=== PATIENT | female | born 1965 | race American Indian/Alaskan Native ===

== ENCOUNTER 2018-05-28 11:52 | Inpatient (IN) | payer MEDICARE, OTHER ==
--- NOTE | 2018-05-28 12:06 | Emergency Department Report ---
ED Neuro Deficit HPI - General Stated Complaint: POSS CVA Time Seen by Provider: 05/28/18 12:00 Source: patient, EMS - History of Present Illness Initial Comments: Patient is 53 years old female with history of stroke and right side STROKE in 2003, no residual. Also history of hypertension, diabetes and congestive heart failure and atrial fibrillation. Patient is on warfarin. Patient brought into the ER via EMS as a code stroke. EMS stated that patient's symptoms started 11: 30 AM with left sided upper and lower extremity weakness. -: Sudden Time: 11:30 Location: speech, left arm, left leg Presenting Symptoms: Present: Weak/Paralyzed One Side History of same: Yes Place: home Associated Symptoms: denies other symptoms - Related Data Home Medications: Home Medications Medication Instructions Recorded Confirmed Last Taken Aspirin EC [Aspirin Enteric Coated 81 mg PO ONCE 04/27/14 06/03/14 Unknown TAB] Digoxin 125 mcg PO DAILY 04/27/14 06/03/14 Unknown Ferrous Sulfate [Iron Supplement 325 mg PO DAILY 04/27/14 06/03/14 Unknown 325 Mg tab] Metoprolol [Lopressor TAB] 100 mg PO BID 04/27/14 06/03/14 Unknown Nortriptyline HCl 25 mg PO HS 04/27/14 06/03/14 Unknown Pravastatin Sodium [Pravastatin] 40 mg PO QHS 04/27/14 06/03/14 Unknown Pregabalin [Lyrica] 25 mg PO BID 04/27/14 06/03/14 Unknown Warfarin Sodium [Coumadin] 7.5 mg PO DAILY 04/27/14 06/03/14 Unknown metFORMIN [Glucophage] 1,000 mg PO BID 04/27/14 06/03/14 Unknown sulfaSALAzine EC (NF) 1,000 mg PO BID 04/27/14 06/03/14 Unknown [sulfaSALAzine EC (Nf)] Lansoprazole [Prevacid] 30 mg PO DAILY 06/03/14 06/03/14 Unknown Metoclopramide HCl [Reglan TAB] 5 mg PO QID 06/03/14 06/03/14 Unknown Allergies/Adverse Reactions: Allergies Allergy/AdvReac Type Severity Reaction Status Date / Time No Known Allergies Allergy Verified 10/18/13 15:48 ED Review of Systems ROS: Stated complaint: POSS CVA Other details as noted in HPI Comment: All other systems reviewed and negative Constitutional: denies: chills, fever Respiratory: denies: cough, shortness of breath, SOB with exertion, wheezing Cardiovascular: denies: chest pain, palpitations, dyspnea on exertion Gastrointestinal: denies: abdominal pain, nausea, vomiting Genitourinary: denies: dysuria ED Past Medical Hx - Past Medical History Hx Hypertension: Yes Hx CVA: Yes (2003) Hx Congestive Heart Failure: Yes Hx Diabetes: Yes Hx Arthritis: Yes Hx Asthma: No Hx COPD: No Additional medical history: cholesterol. fibromyalgia. mvr. sjogren's syndrome - Surgical History Hx Open Heart Surgery: Yes (x2 (last one in Oct)) Hx Cholecystectomy: Yes Additional Surgical History: Mitral valve repair last month - Social History Smoking Status: Never Smoker - Medications Home Medications: Home Medications Medication Instructions Recorded Confirmed Last Taken Type Aspirin EC [Aspirin Enteric Coated 81 mg PO ONCE 04/27/14 06/03/14 Unknown History TAB] Digoxin 125 mcg PO DAILY 04/27/14 06/03/14 Unknown History Ferrous Sulfate [Iron Supplement 325 mg PO DAILY 04/27/14 06/03/14 Unknown History 325 Mg tab] Metoprolol [Lopressor TAB] 100 mg PO BID 04/27/14 06/03/14 Unknown History Nortriptyline HCl 25 mg PO HS 04/27/14 06/03/14 Unknown History Pravastatin Sodium [Pravastatin] 40 mg PO QHS 04/27/14 06/03/14 Unknown History Pregabalin [Lyrica] 25 mg PO BID 04/27/14 06/03/14 Unknown History Warfarin Sodium [Coumadin] 7.5 mg PO DAILY 04/27/14 06/03/14 Unknown History metFORMIN [Glucophage] 1,000 mg PO BID 04/27/14 06/03/14 Unknown History sulfaSALAzine EC (NF) 1,000 mg PO BID 04/27/14 06/03/14 Unknown History [sulfaSALAzine EC (Nf)] Lansoprazole [Prevacid] 30 mg PO DAILY 06/03/14 06/03/14 Unknown History Metoclopramide HCl [Reglan TAB] 5 mg PO QID 06/03/14 06/03/14 Unknown History ED Neuro Physical Exam - General Limitations: No Limitations General appearance: alert, in no apparent distress Suspected Stroke: Yes - Head Head exam: Present: atraumatic, normocephalic, normal inspection - Eye Eye exam: Present: normal appearance, PERRL - ENT ENT exam: Present: normal exam, normal orophraynx, mucous membranes moist - Neck Neck exam: Present: normal inspection, full ROM. Absent: tenderness, meningismus, lymphadenopathy, thyromegaly - Respiratory Respiratory exam: Present: normal lung sounds bilaterally. Absent: respiratory distress, wheezes, rales, rhonchi, chest wall tenderness, accessory muscle use, decreased breath sounds - Cardiovascular Cardiovascular Exam: Present: regular rate, normal rhythm, normal heart sounds - GI/Abdominal GI/Abdominal exam: Present: soft, normal bowel sounds. Absent: distended, tenderness, guarding, rebound, rigid, organomegaly, mass, bruit, pulsatile mass - Extremities Exam Extremities exam: Present: normal inspection, full ROM, normal capillary refill - Back Exam Back exam: Present: normal inspection, full ROM. Absent: CVA tenderness (R), CVA tenderness (L), muscle spasm, paraspinal tenderness - Neurological Exam Neurological exam: Present: alert, oriented X3 - NIHSS Assessment Interval: Baseline 1a. Level of Consciousness: alert/keenly responsive 1b. LOC Questions: answers both correctly 1c. LOC Commands: performs tasks correctly 2. Best Gaze: normal 3. Visual: no visual loss 4. Facial Palsy: minor paralysis 5b. Motor Arm Right: no drift 5a. Motor Arm Left: drift 6a. Motor Leg Left: drift 6b. Motor Leg Right: no drift 7. Limb Ataxia: absent 8. Sensory: normal 9. Best Language: no aphasia 10. Dysarthria: normal 11. Extinction/Inattention: no abnormality Total Score: 3 Stroke Severity: Minor Stroke ED Course Vital Signs 05/28/18 05/28/18 05/28/18 11:55 12:12 12:38 Temperature 97.8 F Pulse Rate 67 70 Respiratory 18 Rate Blood Pressure 163/94 Blood Pressure 147/78 [Left] O2 Sat by Pulse 100 100 Oximetry - Reevaluation(s) Reevaluation #1: 05/28/18 12:28 I discussed the patient with Dr. Ivana Cisneros from tele-neurology, Dr. Cisneros is examining the patient. Patient stated that her symptoms are not improving. Reevaluation #2: 05/28/18 13:08 Unable to get a peripheral line on this patient for the CTA neck and head. Left EJ was done by me with a good flush but unfortunately it rupture when contrast was injected. Procedure stopped and patient immediately went back to the room, warm compresses applied. Reevaluation #3: 05/28/18 13:37 Discussed the patient again with Doctor Amelia., Doctor Amelia stated that patient is not a TPA candidate. She advised to do a CTA neck and brain. - EJ/Peripheral Line Neck L Time Out Performed: Yes Indications: nurses unable to establis Skin Cleansed in Sterile Fashion: Yes Size: 18 Dressing Placed: Tegaderm Patient Tolerated Procedure: well, no complications - Lab Data Result diagrams: 05/28/18 12:23 05/28/18 12:23 Lab Results 05/28/18 05/28/18 05/28/18 Range/Units 12:23 12:23 12:23 WBC 2.3 L (4.5-11.0) K/mm3 RBC 4.22 (3.65-5.03) M/mm3 Hgb 12.4 (10.1-14.3) gm/dl Hct 37.4 (30.3-42.9) % MCV 89 (79-97) fl MCH 29 (28-32) pg MCHC 33 (30-34) % RDW 14.8 (13.2-15.2) % Plt Count 188 (140-440) K/mm3 Add Manual Diff Complete Total Counted 100 Seg Neuts % (Manual) 61.0 (40.0-70.0) % Band Neutrophils % 0 % Lymphocytes % (Manual) 28.0 (13.4-35.0) % Reactive Lymphs % (Man) 1.0 % Monocytes % (Manual) 6.0 (0.0-7.3) % Eosinophils % (Manual) 2.0 (0.0-4.3) % Basophils % (Manual) 2.0 H (0.0-1.8) % Metamyelocytes % 0 % Myelocytes % 0 % Promyelocytes % 0 % Blast Cells % 0 % Nucleated RBC % Not Reportable Seg Neutrophils # Man 1.4 L (1.8-7.7) K/mm3 Band Neutrophils # 0.0 K/mm3 Lymphocytes # (Manual) 0.6 L (1.2-5.4) K/mm3 Abs React Lymphs (Man) 0.0 K/mm3 Monocytes # (Manual) 0.1 (0.0-0.8) K/mm3 Eosinophils # (Manual) 0.0 (0.0-0.4) K/mm3 Basophils # (Manual) 0.0 (0.0-0.1) K/mm3 Metamyelocytes # 0.0 K/mm3 Myelocytes # 0.0 K/mm3 Promyelocytes # 0.0 K/mm3 Blast Cells # 0.0 K/mm3 WBC Morphology Not Reportable Hypersegmented Neuts Not Reportable Hyposegmented Neuts Not Reportable Hypogranular Neuts Not Reportable Smudge Cells Not Reportable Toxic Granulation Not Reportable Toxic Vacuolation Not Reportable Dohle Bodies Not Reportable Pelger-Huet Anomaly Not Reportable Gulshan Rods Not Reportable Platelet Estimate Cons Clumped Platelets Not Reportable Plt Clumps, EDTA Not Reportable Large Platelets Not Reportable Giant Platelets Not Reportable Platelet Satelliting Not Reportable Plt Morphology Comment Not Reportable RBC Morphology Not Reportable Dimorphic RBCs Not Reportable Polychromasia Not Reportable Hypochromasia Not Reportable Poikilocytosis Not Reportable Anisocytosis 1+ Microcytosis Not Reportable Macrocytosis Not Reportable Spherocytes Not Reportable Pappenheimer Bodies Not Reportable Sickle Cells Not Reportable Target Cells Not Reportable Tear Drop Cells Not Reportable Ovalocytes Not Reportable Helmet Cells Not Reportable Jacques-[place] Bodies Not Reportable Manlius Rings Not Reportable Juana Cells Not Reportable Bite Cells Not Reportable Crenated Cell Not Reportable Elliptocytes Not Reportable Acanthocytes (Spur) Not Reportable Rouleaux Not Reportable Hemoglobin C Crystals Not Reportable Schistocytes Not Reportable Malaria parasites Not Reportable Alexsander Bodies Not Reportable Hem Pathologist Commnt No PT 26.9 H (12.2-14.9) Sec. INR 2.42 H (0.87-1.13) APTT 38.4 H (24.2-36.6) Sec. Thrombin Time 33.0 H (15.1-19.6) Sec. Sodium 140 (137-145) mmol/L Potassium 3.9 (3.6-5.0) mmol/L Chloride 100.6 (98-107) mmol/L Carbon Dioxide 28 (22-30) mmol/L Anion Gap 15 mmol/L BUN 19 H (7-17) mg/dL Creatinine 1.2 (0.7-1.2) mg/dL Estimated GFR 57 ml/min BUN/Creatinine Ratio 16 % Glucose 139 H (65-100) mg/dL Calcium 9.6 (8.4-10.2) mg/dL Troponin T < 0.010 (0.00-0.029) ng/mL - EKG Data -: EKG Interpreted by Al EKG shows normal: sinus rhythm Rate: normal Interpretation: no acute changes - Radiology Data Radiology results: report reviewed Referring Physician: EL GORDILLO Patient Name: KADEEM GILBERT Date of : 1965 Sex: Female Report Date: 2018-05-28 Report Status: Finalized Findings [facility] [address] [id number] Cat Scan Report Signed Patient: KADEEM GILBERT MR#: [id number] : 1965 Acct:[id number] Age/Sex: 53 / F ADM Date: 05/28/18 Loc: ED Attending Dr: Ordering Physician: EL GORDILLO Date of Service: 05/28/18 Procedure(s): CT head/brain wo con Accession Number(s): [id number] cc: EL GORDILLO CT HEAD WITHOUT CONTRAST: HISTORY: Neurological deficit, stroke. TECHNIQUE: Sequential 2.5mm CT images. COMPARISON: 04/26/14. FINDINGS: Cerebral Parenchyma: Within normal limits. Cerebellum: Within normal limits. Brainstem: Within normal limits. Ventricles: Normal. Sella: Normal. Extra-axial spaces: Normal. Basal Cisterns: Normal. Intracranial Hemorrhage: None. Midline Shift: None. Calvarium: Normal. Sinuses: Normal. Mastoid Air Cells: Normal. Visualized Orbits: Normal. IMPRESSION: Cranial CT scan within normal limits. These findings were discussed with Dr. Gordillo in the emergency department at 1209 hrs. Transcribed By: TTR Dictated By: PASCALE LEA JR, MD Electronically Authenticated By: PASCALE LEA JR, MD Signed Date/Time: 05/28/18 1209 DD/ 1208 TD/TT: 05/28/18 1209 - Medical Decision Making I discussed the patient is Dr. Snell, he agreed to admit the patient to medical service. Critical Care Time: Yes Critical care time in (mins) excluding proc time.: 30 Critical care attestation.: If time is entered above; I have spent that time in minutes in the direct care of this critically ill patient, excluding procedure time. ED Disposition Clinical Impression: Stroke Disposition: - OP ADMIT IP TO THIS HOSP Is pt being admited?: Yes Condition: Stable Referrals: PRIMARY CARE, [Primary Care Provider] - 3-5 Days
--- NOTE | 2018-05-28 12:10 | Cat Scan Report ---
CT HEAD WITHOUT CONTRAST: HISTORY: Neurological deficit, stroke. TECHNIQUE: Sequential 2.5mm CT images. COMPARISON: 04/26/14. FINDINGS: Cerebral Parenchyma: Within normal limits. Cerebellum: Within normal limits. Brainstem: Within normal limits. Ventricles: Normal. Sella: Normal. Extra-axial spaces: Normal. Basal Cisterns: Normal. Intracranial Hemorrhage: None. Midline Shift: None. Calvarium: Normal. Sinuses: Normal. Mastoid Air Cells: Normal. Visualized Orbits: Normal. IMPRESSION: Cranial CT scan within normal limits. These findings were discussed with Dr. Rosas in the emergency department at 1209 hrs.
[2018-05-28 12:48] LABS: Hematocrit 37.4 % (30.3-42.9); Hemoglobin 12.4 gm/dl (10.1-14.3); Mean Corpuscular HGB Conc 33 % (30-34); Mean Corpuscular Hemoglobin 29 pg (28-32); Mean Corpuscular Volume 89 fl (79-97); Platelet Count 188 K/mm3 (140-440); Red Blood Count 4.22 M/mm3 (3.65-5.03); Red Cell Distribution Width 14.8 % (13.2-15.2)
[2018-05-28 13:01] LABS: INR 2.42 (0.87-1.13)
[2018-05-28 13:02] LABS: Partial Thromboplastin Time 38.4 Sec. (24.2-36.6)
[2018-05-28 13:04] LABS: BUN/Creatinine Ratio 16; Blood Urea Nitrogen 19 mg/dL (7-17); Calcium 9.6 mg/dL (8.4-10.2); Hemolysis Index 6
[2018-05-28 13:42] LABS: Total Cells Counted 100
[2018-05-28 13:43] LABS: Anisocytosis 1+; Platelet Estimate Cons
--- NOTE | 2018-05-28 16:33 | Cat Scan Report ---
FINAL REPORT EXAM: CT ANGIO HEAD HISTORY: stroke TECHNIQUE: Spiral CTA of brain after the uneventful administration of IV contrast. Multiplanar reformations. 3D image post-procesessing was performed on an independent work station. 100 mL Omnipaque IV. PRIORS: None. FINDINGS: Normal enhancement of the basilar and bilateral internal carotid arteries and their main intracranial branches. No abnormal aneurysmal dilatation, significant stenosis or apparent occlusion. No parenchymal mass, hemorrhage, midline shift or hydrocephalus. No evidence of acute cortical infarct. No abnormal extra-axial fluid or air collections. No pathologic enhancement. Osseous calvarium grossly intact. IMPRESSION: 1. No acute intracranial findings. 2. Less than 50% stenosis by NASCET criteria.
--- NOTE | 2018-05-28 16:53 | Cat Scan Report ---
FINAL REPORT EXAM: CT ANGIO NECK HISTORY: stroke TECHNIQUE: Spiral CTA of the neck after the uneventful administration of IV contrast. Multiplanar reformations. 3D image post-procesessing was performed on an independent work station. 100 mL Omnipaque IV. PRIORS: None. FINDINGS: Diffuse contrast material noted in the left upper chest wall, supraclavicular region and partially extending cephalad in the neck, around the sternocleidomastoid muscle, carotid space and probable retropharyngeal or prevertebral spaces to the level of oropharynx. Less pronounced extension caudally into the upper mediastinum. Some gas locules or emphysema also noted along same distribution. Associated mass effect, including rightward tracheal deviation. Left-sided cardiac device and probable left subclavian central venous catheter also noted. Extent of contrast extravasation limits evaluation. Normal enhancement of the bilateral CCAs, ICAs and ECAs. No abnormal aneurysmal dilatation, apparent dissection, significant stenosis or occlusion. Vertebral arteries are patent and symmetric. Degenerative change in the cervical spine. IMPRESSION: 1. Extensive contrast extravasation and less pronounced soft tissue emphysema noted within left chest wall, supraclavicular region and neck limiting evaluation and probably secondary to reported contrast extravasation from attempted central line placement in left external jugular vein, as per emergency department note reported by Dr. Snell at time of dictation. Correlate clinically. 2. Less than 50% carotid stenosis by NASCET criteria. Dr. Loo discussed results with Dr. Snell on 28 May 2018 at approximately 1638 hours EST.
--- NOTE | 2018-05-28 21:19 | History and Physical Report ---
History of Present Illness Date of examination: 05/28/18 Date of admission: 05/28/18 15:17 Chief complaint: Chief complaint: Left-sided weakness since11 a.m. History of present illness: History of Present Illness: 53-year-old black female with history of hypertension hyperlipidemia peripheral neuropathy and CVA affecting right side with full recovery comes in for left- sided weakness this time. Patient is on Coumadin. Patient's symptoms started around 11 AM with left-sided upper and lower extremity weakness. She was deemed to be not a TPA candidate as per telemetry neurologists. Patient unable to lift her left upper extremity and left lower extremity. No altered SENSORIUM. No fever no chills. No shortness of breath. Unable to walk. Past Medical History Hx Hypertension: Yes Hx CVA: Yes (2003) with no residual weakness on the right side Hx Congestive Heart Failure: Yes Hx Diabetes: Yes Hx Arthritis: Yes Additional medical history: cholesterol. fibromyalgia. mvr. sjogren's syndrome - Surgical History Hx Open Heart Surgery: Yes (x2 (last one in Oct)) Hx Cholecystectomy: Yes Additional Surgical History: Mitral valve repair last month - Social History Smoking Status: Never Smoker Family history Htn - Medications Home Medications: Home Medications Medication Instructions Recorded Confirmed Last Taken Type Aspirin EC [Aspirin Enteric Coated 81 mg PO ONCE 04/27/14 06/03/14 Unknown History TAB] Digoxin 125 mcg PO DAILY 04/27/14 06/03/14 Unknown History Ferrous Sulfate [Iron Supplement 325 mg PO DAILY 04/27/14 06/03/14 Unknown History 325 Mg tab] Metoprolol [Lopressor TAB] 100 mg PO BID 04/27/14 06/03/14 Unknown History Nortriptyline HCl 25 mg PO HS 04/27/14 06/03/14 Unknown History Pravastatin Sodium [Pravastatin] 40 mg PO QHS 04/27/14 06/03/14 Unknown History Pregabalin [Lyrica] 25 mg PO BID 04/27/14 06/03/14 Unknown History Warfarin Sodium [Coumadin] 7.5 mg PO DAILY 04/27/14 06/03/14 Unknown History metFORMIN [Glucophage] 1,000 mg PO BID 04/27/14 06/03/14 Unknown History sulfaSALAzine EC (NF) 1,000 mg PO BID 04/27/14 06/03/14 Unknown History [sulfaSALAzine EC (Nf)] Lansoprazole [Prevacid] 30 mg PO DAILY 06/03/14 06/03/14 Unknown History Metoclopramide HCl [Reglan TAB] 5 mg PO QID 06/03/14 06/03/14 Unknown History Review of systems ROS: Stated complaint: POSS CVA Other details as noted in HPI Comment: All other systems reviewed and negative Constitutional: denies: chills, fever Respiratory: denies: cough, shortness of breath, SOB with exertion, wheezing Cardiovascular: denies: chest pain, palpitations, dyspnea on exertion Gastrointestinal: denies: abdominal pain, nausea, vomiting Genitourinary: denies: dysuria Medications and Allergies Allergies Allergy/AdvReac Type Severity Reaction Status Date / Time No Known Allergies Allergy Verified 10/18/13 15:48 Home Medications Medication Instructions Recorded Confirmed Last Taken Type Warfarin Sodium [Coumadin] 7.5 mg PO DAILY 04/27/14 05/28/18 05/27/18 History Carvedilol [Coreg] 6.25 mg PO BID 05/28/18 05/28/18 05/27/18 History Ezetimibe [Zetia] 10 mg PO QDAY 05/28/18 05/28/18 05/27/18 History Furosemide [Lasix TAB] 40 mg PO QDAY 05/28/18 05/28/18 05/27/18 History Levothyroxine [Synthroid] 75 mcg PO QAM 05/28/18 05/28/18 05/27/18 History Paricalcitol [Zemplar] 1 mcg PO 3XW 05/28/18 05/28/18 05/27/18 History Pregabalin [Lyrica] 200 mg PO Q12HR 05/28/18 05/28/18 05/27/18 History 200MG Venlafaxine [Effexor] 225 mg PO DAILY 05/28/18 05/28/18 05/27/18 History Active Meds: Active Medications Carvedilol (Coreg) 6.25 mg PO BID RABIA Ezetimibe (Zetia) 10 mg PO QDAY RABIA Furosemide (Lasix) 40 mg PO QDAY RABIA Levothyroxine Sodium (Synthroid) 75 mcg PO QAM RABIA Miscellaneous Medication (Pregabalin [Lyrica]) 200 mg PO Q12HR RABIA Paricalcitol (Zemplar) 1 mcg PO 3XW RABIA Venlafaxine HCl (Effexor) 225 mg PO DAILY RABIA Warfarin Sodium (Coumadin) 7.5 mg PO DAILY RABIA; Protocol Exam - Physical Exam Narrative exam: Lying in bed comfortably - Constitutional Vitals: Temp Pulse Resp BP Pulse Ox 98.6 F 69 18 157/73 98 05/28/18 20:03 05/28/18 20:03 05/28/18 20:03 05/28/18 20:03 05/28/18 20:03 General appearance: Present: no acute distress, well-nourished - EENT Eyes: Present: PERRL ENT: hearing intact, clear oral mucosa - Neck Neck: Present: supple, normal ROM - Respiratory Respiratory effort: normal Respiratory: bilateral: CTA - Cardiovascular Heart rate: 67 Rhythm: regular Heart Sounds: Present: S1 & S2. Absent: rub, click - Extremities Extremities: no ischemia, pulses intact, pulses symmetrical, No edema Peripheral Pulses: within normal limits - Abdominal General gastrointestinal: Present: soft, non-tender, non-distended, normal bowel sounds Female genitourinary: Present: deferred - Integumentary Integumentary: Present: clear, warm, dry - Musculoskeletal Musculoskeletal: left sided weakness - Psychiatric Psychiatric: appropriate mood/affect, intact judgment & insight, memory intact, cooperative - Neurologic Neurologic: CNII-XII intact, focal deficits, other (left upper extremity weakness 3/5 power. Left lower extremity 2/5 power. Reflexes are brisk. No sensory loss. Left facial droop slightly no other cranial nerves involved gait could not be tested.) Results - Labs CBC & Chem 7: 05/28/18 12:23 05/28/18 12:23 Labs: Laboratory Last Values WBC 2.3 K/mm3 (4.5-11.0) L 05/28/18 12:23 RBC 4.22 M/mm3 (3.65-5.03) 05/28/18 12:23 Hgb 12.4 gm/dl (10.1-14.3) 05/28/18 12:23 Hct 37.4 % (30.3-42.9) 05/28/18 12:23 MCV 89 fl (79-97) 05/28/18 12:23 MCH 29 pg (28-32) 05/28/18 12:23 MCHC 33 % (30-34) 05/28/18 12:23 RDW 14.8 % (13.2-15.2) 05/28/18 12:23 Plt Count 188 K/mm3 (140-440) 05/28/18 12:23 Add Manual Diff Complete 05/28/18 12:23 Total Counted 100 05/28/18 12:23 Seg Neuts % (Manual) 61.0 % (40.0-70.0) 05/28/18 12:23 Band Neutrophils % 0 % 05/28/18 12:23 Lymphocytes % (Manual) 28.0 % (13.4-35.0) 05/28/18 12:23 Reactive Lymphs % (Man) 1.0 % 05/28/18 12:23 Monocytes % (Manual) 6.0 % (0.0-7.3) 05/28/18 12:23 Eosinophils % (Manual) 2.0 % (0.0-4.3) 05/28/18 12:23 Basophils % (Manual) 2.0 % (0.0-1.8) H 05/28/18 12:23 Metamyelocytes % 0 % 05/28/18 12:23 Myelocytes % 0 % 05/28/18 12:23 Promyelocytes % 0 % 05/28/18 12:23 Blast Cells % 0 % 05/28/18 12:23 Nucleated RBC % Not Reportable 05/28/18 12:23 Seg Neutrophils # Man 1.4 K/mm3 (1.8-7.7) L 05/28/18 12:23 Band Neutrophils # 0.0 K/mm3 05/28/18 12:23 Lymphocytes # (Manual) 0.6 K/mm3 (1.2-5.4) L 05/28/18 12:23 Abs React Lymphs (Man) 0.0 K/mm3 05/28/18 12:23 Monocytes # (Manual) 0.1 K/mm3 (0.0-0.8) 05/28/18 12:23 Eosinophils # (Manual) 0.0 K/mm3 (0.0-0.4) 05/28/18 12:23 Basophils # (Manual) 0.0 K/mm3 (0.0-0.1) 05/28/18 12:23 Metamyelocytes # 0.0 K/mm3 05/28/18 12:23 Myelocytes # 0.0 K/mm3 05/28/18 12:23 Promyelocytes # 0.0 K/mm3 05/28/18 12:23 Blast Cells # 0.0 K/mm3 05/28/18 12:23 WBC Morphology Not Reportable 05/28/18 12:23 Hypersegmented Neuts Not Reportable 05/28/18 12:23 Hyposegmented Neuts Not Reportable 05/28/18 12:23 Hypogranular Neuts Not Reportable 05/28/18 12:23 Smudge Cells Not Reportable 05/28/18 12:23 Toxic Granulation Not Reportable 05/28/18 12:23 Toxic Vacuolation Not Reportable 05/28/18 12:23 Dohle Bodies Not Reportable 05/28/18 12:23 Pelger-Huet Anomaly Not Reportable 05/28/18 12:23 Gulshan Rods Not Reportable 05/28/18 12:23 Platelet Estimate Cons 05/28/18 12:23 Clumped Platelets Not Reportable 05/28/18 12:23 Plt Clumps, EDTA Not Reportable 05/28/18 12:23 Large Platelets Not Reportable 05/28/18 12:23 Giant Platelets Not Reportable 05/28/18 12:23 Platelet Satelliting Not Reportable 05/28/18 12:23 Plt Morphology Comment Not Reportable 05/28/18 12:23 RBC Morphology Not Reportable 05/28/18 12:23 Dimorphic RBCs Not Reportable 05/28/18 12:23 Polychromasia Not Reportable 05/28/18 12:23 Hypochromasia Not Reportable 05/28/18 12:23 Poikilocytosis Not Reportable 05/28/18 12:23 Anisocytosis 1+ 05/28/18 12:23 Microcytosis Not Reportable 05/28/18 12:23 Macrocytosis Not Reportable 05/28/18 12:23 Spherocytes Not Reportable 05/28/18 12:23 Pappenheimer Bodies Not Reportable 05/28/18 12:23 Sickle Cells Not Reportable 05/28/18 12:23 Target Cells Not Reportable 05/28/18 12:23 Tear Drop Cells Not Reportable 05/28/18 12:23 Ovalocytes Not Reportable 05/28/18 12:23 Helmet Cells Not Reportable 05/28/18 12:23 Jacques-Cecilia Bodies Not Reportable 05/28/18 12:23 [place] Rings Not Reportable 05/28/18 12:23 [place] Cells Not Reportable 05/28/18 12:23 Bite Cells Not Reportable 05/28/18 12:23 Crenated Cell Not Reportable 05/28/18 12:23 Elliptocytes Not Reportable 05/28/18 12:23 Acanthocytes (Spur) Not Reportable 05/28/18 12:23 Rouleaux Not Reportable 05/28/18 12:23 Hemoglobin C Crystals Not Reportable 05/28/18 12:23 Schistocytes Not Reportable 05/28/18 12:23 Malaria parasites Not Reportable 05/28/18 12:23 Alexsander Bodies Not Reportable 05/28/18 12:23 Hem Pathologist Commnt No 05/28/18 12:23 PT 26.9 Sec. (12.2-14.9) H 05/28/18 12:23 INR 2.42 (0.87-1.13) H 05/28/18 12:23 APTT 38.4 Sec. (24.2-36.6) H 05/28/18 12:23 Thrombin Time 33.0 Sec. (15.1-19.6) H 05/28/18 12:23 Sodium 140 mmol/L (137-145) 05/28/18 12:23 Potassium 3.9 mmol/L (3.6-5.0) 05/28/18 12:23 Chloride 100.6 mmol/L (98-107) 05/28/18 12:23 Carbon Dioxide 28 mmol/L (22-30) 05/28/18 12:23 Anion Gap 15 mmol/L 05/28/18 12:23 BUN 19 mg/dL (7-17) H 05/28/18 12:23 Creatinine 1.2 mg/dL (0.7-1.2) 05/28/18 12:23 Estimated GFR 57 ml/min 05/28/18 12:23 BUN/Creatinine Ratio 16 % 05/28/18 12:23 Glucose 139 mg/dL (65-100) H 05/28/18 12:23 Calcium 9.6 mg/dL (8.4-10.2) 05/28/18 12:23 Troponin T < 0.010 ng/mL (0.00-0.029) 05/28/18 12:23 Short CBC 05/28/18 Range/Units 12:23 WBC 2.3 L (4.5-11.0) K/mm3 Hgb 12.4 (10.1-14.3) gm/dl Hct 37.4 (30.3-42.9) % Plt Count 188 (140-440) K/mm3 BMP 05/28/18 12:23 Sodium 140 Potassium 3.9 Chloride 100.6 Carbon Dioxide 28 BUN 19 H Creatinine 1.2 Glucose 139 H Calcium 9.6 Cardiac Enzymes 05/28/18 Range/Units 12:23 Troponin T < 0.010 (0.00-0.029) ng/mL - Imaging and Cardiology EKG: report reviewed (67/m sinus rhythm right bundle branch block and LVH with IVCD and secondary repolarization abnormalities) CT Scan - head: report reviewed (no acute findings) Imaging and Cardiology: Head CTA No acute findings Less than 50% blockage Neck CTA IMPRESSION: 1. Extensive contrast extravasation and less pronounced soft tissue emphysema noted within left chest wall, supraclavicular region and neck limiting evaluation and probably secondary to reported contrast extravasation from attempted central line placement in left external jugular vein, as per emergency department note reported by Dr. Snell at time of dictation. Correlate clinically. 2. Less than 50% carotid stenosis by NASCET criteria. Dr. Loo discussed results with Dr. Snell on 28 May 2018 at approximately 1638 hours EST. Assessment and Plan Advance Directives: Yes (full code) VTE prophylaxis?: Chemical Plan of care discussed with patient/family: Yes - Patient Problems (1) Acute CVA (cerebrovascular accident) Current Visit: Yes Status: Acute Plan to address problem: Patient has left-sided weakness--acute in nature CVA workup CT angiogram negative We'll get MRI/MRA echocardiogram and carotid duplex scan Neurology consult in a.m. Plavix initiated (2) HTN (hypertension) Onset Date: 05/28/13 Current Visit: No Status: Chronic Qualifiers: Hypertension type: essential hypertension Qualified Code(s): I10 - Essential (primary) hypertension Plan to address problem: Continue metoprolol. (3) Type 2 diabetes mellitus Current Visit: Yes Status: Chronic Qualifiers: Diabetes mellitus salvage determiner insulin use: without jail use Plan to address problem: Continue metformin and coverage (4) Hyperlipidemia Current Visit: Yes Status: Chronic Qualifiers: Hyperlipidemia type: mixed hyperlipidemia Qualified Code(s): E78.2 - Mixed hyperlipidemia Plan to address problem: Continue statins (5) Atrial fibrillation Current Visit: Yes Status: Chronic Qualifiers: Atrial fibrillation type: paroxysmal Qualified Code(s): I48.0 - Paroxysmal atrial fibrillation Plan to address problem: Patient on Coumadin Present EKG does not show atrial fibrillation May have paroxysmal atrial fibrillation (6) Peripheral neuropathy Current Visit: Yes Status: Chronic Qualifiers: Peripheral neuropathy type: polyneuropathy, unspecified Qualified Code(s): G62.9 - Polyneuropathy, unspecified Plan to address problem: Continue Lyrica (7) Depression Current Visit: Yes Status: Chronic Qualifiers: Depression Type: unspecified Qualified Code(s): F32.9 - Major depressive disorder, single episode, unspecified Plan to address problem: Continue nortriptyline (8) GERD (gastroesophageal reflux disease) Current Visit: Yes Status: Chronic Qualifiers: Esophagitis presence: without esophagitis Qualified Code(s): K21.9 - Gastro -esophageal reflux disease without esophagitis Plan to address problem: Continue Prevacid and metoclopramide (9) Leukopenia Current Visit: Yes Status: Chronic Qualifiers: Leukopenia type: unspecified Qualified Code(s): D72.819 - Decreased white blood cell count, unspecified Plan to address problem: Will trend the white cell count (10) DVT prophylaxis Current Visit: Yes Status: Acute Plan to address problem: On Lovenox
[2018-05-28] MEDS ORDERED: SODIUM CHLORIDE FLUSH SYRINGE 10 ML IV PRN ×2 (21:42→21:44)
[2018-05-28] MEDS ORDERED: REGLAN IV PRN (21:42)
[2018-05-28] MEDS ORDERED: TYLENOL PO PRN (21:42)
[2018-05-28] MEDS ORDERED: DILAUDID IV PRN (21:42)
[2018-05-28] MEDS ORDERED: MORPHINE IV PRN (21:42)
[2018-05-28] MEDS ORDERED: ZOFRAN IV PRN (21:42)
[2018-05-28] MEDS ORDERED: PERCOCET 5/325 PO PRN (21:42)
[2018-05-28] MEDS ORDERED: EFFEXOR XR PO SCH (22:00)
[2018-05-28] MEDS ORDERED: NON-FORMULARY (Pregabalin [Lyrica] 200 MG) PO SCH (22:00)
[2018-05-28] MEDS ORDERED: SODIUM CHLORIDE FLUSH SYRINGE 10 ML IV SCH (22:00)
[2018-05-28] MEDS ORDERED: COUMADIN PO SCH ×2 (22:00)
[2018-05-28] MEDS ORDERED: EFFEXOR PO SCH (22:00)
[2018-05-28] MEDS: ZETIA PO SCH (22:42)
[2018-05-28] MEDS: COREG PO SCH (22:43)
[2018-05-28] MEDS: EFFEXOR XR PO SCH (22:43)
[2018-05-28] MEDS: LASIX PO SCH (22:44)
[2018-05-28] MEDS: LYRICA PO SCH ×2 (22:44)
[2018-05-28] MEDS: HumaLOG SUB-Q SCH (22:45)
[2018-05-29 05:44] LABS: Basophils % (Auto) 0.7 % (0.0-1.8); Eosinophils # (Auto) 0.1 K/mm3 (0.0-0.4); Eosinophils % (Auto) 4.2 % (0.0-4.3); Hematocrit 36.2 % (30.3-42.9); Hemoglobin 12.3 gm/dl (10.1-14.3); Lymphocytes % (Auto) 44.4 % (13.4-35.0); Mean Corpuscular HGB Conc 34 % (30-34); Mean Corpuscular Hemoglobin 30 pg (28-32); Mean Corpuscular Volume 88 fl (79-97); Monocytes # (Auto) 0.1 K/mm3 (0.0-0.8); Monocytes % (Auto) 6.1 % (0.0-7.3); Platelet Count 197 K/mm3 (140-440); Red Blood Count 4.12 M/mm3 (3.65-5.03); Red Cell Distribution Width 14.9 % (13.2-15.2)
[2018-05-29 05:54] LABS: INR 2.23 (0.87-1.13)
[2018-05-29] MEDS ORDERED: SYNTHROID PO SCH ×2 (06:00→10:00)
[2018-05-29 06:17] LABS: Alanine Aminotransferase 13 units/L (7-56); Albumin 4.5 g/dL (3.9-5); BUN/Creatinine Ratio 14; Blood Urea Nitrogen 14 mg/dL (7-17); Calcium 9.4 mg/dL (8.4-10.2); Chol/HDL Ratio 3.55 %; HDL Cholesterol 79 mg/dL (40-59); Hemolysis Index 6; LDL Cholesterol,Direct 211 mg/dL (50-130)
--- NOTE | 2018-05-29 08:27 | Progress Note ---
Assessment and Plan Assessment and plan: 53-year-old female with past medical history significant for right-sided CVA, A. fib on anticoagulation, hypertension, GERD, systolic CHF, hyperlipidemia presented to the emergency department with complaints of left-sided weakness that resolved spontaneously Acute CVA - CVA workup - Statin - Continue home medications Paroxysmal A. fib - Continue warfarin, INR is therapeutic Systolic CHF - Stable, continue medications GERD - On Protonix Hyperlipidemia - Continue statin DM - OnSSI DVT prophylaxis - Therapeutic INR Disposition - Continue continue inpatient care, Finish CVA workup History Interval history: Patient will seen and evaluated this morning, no focal weakness Hospitalist Physical - Physical exam Narrative exam: Not in cardiopulmonary distress. The patient appeared well nourished and normally developed. Vital signs as documented. Head exam is unremarkable. No scleral icterus . Neck is without jugular venous distension, thyromegaly, or carotid bruits. Lungs are clear to auscultation. Cardiac exam reveals regular rate and Rhythm. First and second heart sounds normal. No murmurs, rubs or gallops. Abdominal exam reveals normal bowel sounds, no masses, no organomegaly and no aortic enlargement. Extremities are nonedematous and both femoral and pedal pulses are normal. REGISTRATION OFFICER: Alert and oriented 3. No focal weakness. - Constitutional Vitals: Temp Pulse Resp BP Pulse Ox 98.0 F 67 16 134/69 97 05/29/18 04:55 05/29/18 04:55 05/29/18 04:55 05/29/18 04:55 05/29/18 04:55 General appearance: Present: no acute distress, well-nourished Results - Labs CBC & Chem 7: 05/29/18 04:58 05/29/18 04:58 Labs: Laboratory Last Values WBC 2.4 K/mm3 (4.5-11.0) L 05/29/18 04:58 RBC 4.12 M/mm3 (3.65-5.03) 05/29/18 04:58 Hgb 12.3 gm/dl (10.1-14.3) 05/29/18 04:58 Hct 36.2 % (30.3-42.9) 05/29/18 04:58 MCV 88 fl (79-97) 05/29/18 04:58 MCH 30 pg (28-32) 05/29/18 04:58 MCHC 34 % (30-34) 05/29/18 04:58 RDW 14.9 % (13.2-15.2) 05/29/18 04:58 Plt Count 197 K/mm3 (140-440) 05/29/18 04:58 Lymph % (Auto) 44.4 % (13.4-35.0) H 05/29/18 04:58 Will % (Auto) 6.1 % (0.0-7.3) 05/29/18 04:58 Eos % (Auto) 4.2 % (0.0-4.3) 05/29/18 04:58 Baso % (Auto) 0.7 % (0.0-1.8) 05/29/18 04:58 Lymph # 1.0 K/mm3 (1.2-5.4) L 05/29/18 04:58 Will # 0.1 K/mm3 (0.0-0.8) 05/29/18 04:58 Eos # 0.1 K/mm3 (0.0-0.4) 05/29/18 04:58 Baso # 0.0 K/mm3 (0.0-0.1) 05/29/18 04:58 Add Manual Diff Complete 05/28/18 12:23 Total Counted 100 05/28/18 12:23 Seg Neutrophils % 44.6 % (40.0-70.0) 05/29/18 04:58 Seg Neuts % (Manual) 61.0 % (40.0-70.0) 05/28/18 12:23 Band Neutrophils % 0 % 05/28/18 12:23 Lymphocytes % (Manual) 28.0 % (13.4-35.0) 05/28/18 12:23 Reactive Lymphs % (Man) 1.0 % 05/28/18 12:23 Monocytes % (Manual) 6.0 % (0.0-7.3) 05/28/18 12:23 Eosinophils % (Manual) 2.0 % (0.0-4.3) 05/28/18 12:23 Basophils % (Manual) 2.0 % (0.0-1.8) H 05/28/18 12:23 Metamyelocytes % 0 % 05/28/18 12:23 Myelocytes % 0 % 05/28/18 12:23 Promyelocytes % 0 % 05/28/18 12:23 Blast Cells % 0 % 05/28/18 12:23 Nucleated RBC % Not Reportable 05/28/18 12:23 Seg Neutrophils # 1.1 K/mm3 (1.8-7.7) L 05/29/18 04:58 Seg Neutrophils # Man 1.4 K/mm3 (1.8-7.7) L 05/28/18 12:23 Band Neutrophils # 0.0 K/mm3 05/28/18 12:23 Lymphocytes # (Manual) 0.6 K/mm3 (1.2-5.4) L 05/28/18 12:23 Abs React Lymphs (Man) 0.0 K/mm3 05/28/18 12:23 Monocytes # (Manual) 0.1 K/mm3 (0.0-0.8) 05/28/18 12:23 Eosinophils # (Manual) 0.0 K/mm3 (0.0-0.4) 05/28/18 12:23 Basophils # (Manual) 0.0 K/mm3 (0.0-0.1) 05/28/18 12:23 Metamyelocytes # 0.0 K/mm3 05/28/18 12:23 Myelocytes # 0.0 K/mm3 05/28/18 12:23 Promyelocytes # 0.0 K/mm3 05/28/18 12:23 Blast Cells # 0.0 K/mm3 05/28/18 12:23 WBC Morphology Not Reportable 05/28/18 12:23 Hypersegmented Neuts Not Reportable 05/28/18 12:23 Hyposegmented Neuts Not Reportable 05/28/18 12:23 Hypogranular Neuts Not Reportable 05/28/18 12:23 Smudge Cells Not Reportable 05/28/18 12:23 Toxic Granulation Not Reportable 05/28/18 12:23 Toxic Vacuolation Not Reportable 05/28/18 12:23 Dohle Bodies Not Reportable 05/28/18 12:23 Pelger-Huet Anomaly Not Reportable 05/28/18 12:23 Gulshan Rods Not Reportable 05/28/18 12:23 Platelet Estimate Cons 05/28/18 12:23 Clumped Platelets Not Reportable 05/28/18 12:23 Plt Clumps, EDTA Not Reportable 05/28/18 12:23 Large Platelets Not Reportable 05/28/18 12:23 Giant Platelets Not Reportable 05/28/18 12:23 Platelet Satelliting Not Reportable 05/28/18 12:23 Plt Morphology Comment Not Reportable 05/28/18 12:23 RBC Morphology Not Reportable 05/28/18 12:23 Dimorphic RBCs Not Reportable 05/28/18 12:23 Polychromasia Not Reportable 05/28/18 12:23 Hypochromasia Not Reportable 05/28/18 12:23 Poikilocytosis Not Reportable 05/28/18 12:23 Anisocytosis 1+ 05/28/18 12:23 Microcytosis Not Reportable 05/28/18 12:23 Macrocytosis Not Reportable 05/28/18 12:23 Spherocytes Not Reportable 05/28/18 12:23 Pappenheimer Bodies Not Reportable 05/28/18 12:23 Sickle Cells Not Reportable 05/28/18 12:23 Target Cells Not Reportable 05/28/18 12:23 Tear Drop Cells Not Reportable 05/28/18 12:23 Ovalocytes Not Reportable 05/28/18 12:23 Helmet Cells Not Reportable 05/28/18 12:23 Jacques-Plummer Bodies Not Reportable 05/28/18 12:23 [place] Rings Not Reportable 05/28/18 12:23 [place] Cells Not Reportable 05/28/18 12:23 Bite Cells Not Reportable 05/28/18 12:23 Crenated Cell Not Reportable 05/28/18 12:23 Elliptocytes Not Reportable 05/28/18 12:23 Acanthocytes (Spur) Not Reportable 05/28/18 12:23 Rouleaux Not Reportable 05/28/18 12:23 Hemoglobin C Crystals Not Reportable 05/28/18 12:23 Schistocytes Not Reportable 05/28/18 12:23 Malaria parasites Not Reportable 05/28/18 12:23 Alexsander Bodies Not Reportable 05/28/18 12:23 Hem Pathologist Commnt No 05/28/18 12:23 PT 25.3 Sec. (12.2-14.9) H 05/29/18 04:58 INR 2.23 (0.87-1.13) H 05/29/18 04:58 APTT 38.4 Sec. (24.2-36.6) H 05/28/18 12:23 Thrombin Time 33.0 Sec. (15.1-19.6) H 05/28/18 12:23 Sodium 142 mmol/L (137-145) 05/29/18 04:58 Potassium 3.5 mmol/L (3.6-5.0) L 05/29/18 04:58 Chloride 102.3 mmol/L (98-107) 05/29/18 04:58 Carbon Dioxide 25 mmol/L (22-30) 05/29/18 04:58 Anion Gap 18 mmol/L 05/29/18 04:58 BUN 14 mg/dL (7-17) 05/29/18 04:58 Creatinine 1.0 mg/dL (0.7-1.2) 05/29/18 04:58 Estimated GFR > 60 ml/min 05/29/18 04:58 BUN/Creatinine Ratio 14 % 05/29/18 04:58 Glucose 97 mg/dL (65-100) 05/29/18 04:58 POC Glucose 95 (70-105) 05/29/18 06:55 Hemoglobin A1c 6.4 % (4-6) H 05/28/18 12:23 Calcium 9.4 mg/dL (8.4-10.2) 05/29/18 04:58 Total Bilirubin 0.30 mg/dL (0.1-1.2) 05/29/18 04:58 AST 24 units/L (5-40) 05/29/18 04:58 ALT 13 units/L (7-56) 05/29/18 04:58 Alkaline Phosphatase 53 units/L (35-129) 05/29/18 04:58 Troponin T < 0.010 ng/mL (0.00-0.029) 05/28/18 12:23 Total Protein 7.3 g/dL (6.3-8.2) 05/29/18 04:58 Albumin 4.5 g/dL (3.9-5) 05/29/18 04:58 Albumin/Globulin Ratio 1.6 % 05/29/18 04:58 Triglycerides 102 mg/dL (2-149) 05/29/18 04:58 Cholesterol 281 mg/dL (50-199) H 05/29/18 04:58 LDL Cholesterol Direct 211 mg/dL (50-130) H 05/29/18 04:58 HDL Cholesterol 79 mg/dL (40-59) H 05/29/18 04:58 Cholesterol/HDL Ratio 3.55 % 05/29/18 04:58
[2018-05-29] MEDS: HumaLOG SUB-Q SCH ×2 (08:38→13:03)
[2018-05-29] MEDS ORDERED: ASPIRIN PO SCH (10:00)
[2018-05-29] MEDS ORDERED: PROTONIX PO SCH (10:00)
[2018-05-29] MEDS ORDERED: ZEMPLAR PO SCH (10:00)
[2018-05-29] MEDS: LYRICA PO SCH ×2 (12:14)
[2018-05-29] MEDS: LASIX PO SCH (12:17)
[2018-05-29] MEDS: COREG PO SCH (12:17)
[2018-05-29] MEDS: EFFEXOR XR PO SCH (12:17)
[2018-05-29] MEDS: ZETIA PO SCH (12:18)
[2018-05-29 14:50] VITALS: BP 143/73
--- NOTE | 2018-05-29 15:30 | Event Note ---
Date: 05/29/18 Invitedto consult on this patient, a 53 year old female with history of prior CVA, CHF, hypertension, pacemaker, and atrial fib., on Coumadin, presented with acute left sided weakness, which has resolved. INR was 2.4 on admission. Stroke evaluation continues. I presented to her room this p.m. but patient was at MRI. Work-up thus far has been unremarkable. Recommend- If no evidence for acute stroke would maintain coumadin, aim for INR of 2.5, which is close to what she is at.
--- NOTE | 2018-05-29 16:16 | Discharge Summary ---
Providers - Providers Date of Admission: 05/28/18 15:17 Attending physician: JAMES MACIAS MD 05/28/18 Consult to Case Management [CONS] Routine Services Needed at Discharge: Home Health Services Notified:: CASE MNGT Was contact made?: Yes If yes, spoke with:: ON UNIT 05/28/18 21:42 Consult to Physician [CONS] Routine Comment: Consulting Provider: ABEL WASHINGTON Physician Instructions: Reason For Exam: CVA with left-sided hemiplegia 05/28/18 21:44 Occupational Therapy Evaluate and Treat [CONS] Routine Comment: Reason For Exam: Neuro deficits Physical Therapy Evaluation and Treat [CONS] Routine Comment: Reason For Exam: Neuro deficits Primary care physician: REHABILITATION TECHNICIAN Hospitalization Reason for admission: Left sided weakness Condition: Stable Disposition: [id number]/[place]-06 HOME UNDER HOME [facility] Time spent for discharge: 32 minutes - Discharge Diagnoses (1) History of CVA (cerebrovascular accident) Status: Chronic (2) Acute CVA (cerebrovascular accident) Status: Ruled-out Comment: neurolgy evaluated and belived no acute stroke. (3) Atrial fibrillation Status: Chronic Qualifiers: Atrial fibrillation type: paroxysmal Qualified Code(s): I48.0 - Paroxysmal atrial fibrillation (4) Depression Status: Chronic Qualifiers: Depression Type: unspecified Qualified Code(s): F32.9 - Major depressive disorder, single episode, unspecified (5) GERD (gastroesophageal reflux disease) Status: Chronic Qualifiers: Esophagitis presence: without esophagitis Qualified Code(s): K21.9 - Gastro -esophageal reflux disease without esophagitis (6) Hyperlipidemia Status: Chronic Qualifiers: Hyperlipidemia type: mixed hyperlipidemia Qualified Code(s): E78.2 - Mixed hyperlipidemia Core Measure Documentation - Palliative Care Palliative Care/ Comfort Measures: Not Applicable - Core Measures Any of the following diagnoses?: history only (CVA and CHF) Exam - Physical Exam Narrative exam: Not in cardiopulmonary distress. The patient appeared well nourished and normally developed. Vital signs as documented. Head exam is unremarkable. No scleral icterus . Neck is without jugular venous distension, thyromegaly, or carotid bruits. Lungs are clear to auscultation. Cardiac exam reveals regular rate and Rhythm. First and second heart sounds normal. No murmurs, rubs or gallops. Abdominal exam reveals normal bowel sounds, no masses, no organomegaly and no aortic enlargement. Extremities are nonedematous and both femoral and pedal pulses are normal. 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 No focal weakness. - Constitutional Vitals: Temp Pulse Resp BP Pulse Ox 97.8 F 77 18 143/73 97 05/29/18 14:49 05/29/18 14:49 05/29/18 14:49 05/29/18 14:49 05/29/18 14:49 Plan Activity: advance as tolerated Weight Bearing Status: Weight Bear as Tolerated Diet: low cholesterol, low salt, diabetic Follow up with: PRIMARY CARE, [Primary Care Provider] - 3-5 Days Forms: Warfarin Discharge Instruction Prescriptions: AtorvaSTATin [Lipitor] 40 mg PO QHS #30 tablet
== END 2018-05-29 18:37 | disposition home health service (06) | DRG 309 ==
LOC: ED 11:52 → 4A 15:17
PROVIDERS: ADMIT Internal Medicine; ATTEND Internal Medicine
DX: I48.0 Paroxysmal atrial fibrillation (principal); I50.20 Unspecified systolic (congestive) heart failure; I69.351 Hemiplegia and hemiparesis following cerebral infarction affecting right dominant side; R53.1 Weakness; E78.2 Mixed hyperlipidemia; E11.42 Type 2 diabetes mellitus with diabetic polyneuropathy; I11.0 Hypertensive heart disease with heart failure; M35.00 Sjogren syndrome, unspecified; F32.9 Major depressive disorder, single episode, unspecified; K21.9 Gastro-esophageal reflux disease without esophagitis; D72.819 Decreased white blood cell count, unspecified; Z79.82 Long term (current) use of aspirin; Z90.49 Acquired absence of other specified parts of digestive tract; Z82.49 Family history of ischemic heart disease and other diseases of the circulatory system; Z79.01 Long term (current) use of anticoagulants; Z79.84 Long term (current) use of oral hypoglycemic drugs; Z95.0 Presence of cardiac pacemaker
CPT/HCPCS: 36415; 70450; 70496; 70498; 80048; 80053; 80061; 82962; 83036; 84484; 85007; 85025; 85610; 85670; 85730; 93005; 93010; 93306; 93880; G8978-GP; G8979-GP; G8980-GP; Q9967